=== PATIENT | female | born 1970 | race African-American/Black ===

== ENCOUNTER → 2017-10-04 | Day surgery (SDC) | payer OTHER ==
[~2017-10-04] VITALS: Ht 172.7 cm; Wt 126.4 kg
[~2017-10-04] MED LIST: *morphine SULFATE 4 MG/ML PERIprocedure ONLY ONE; ACETAMINOPHEN 1000 MG/100 ML 100 ML IV ONE; ACETAMINOPHEN 1000 MG/100 ML 100 ML IV SCH; AMOX875; BUPIVACAINE/EPINEPHRINE 0.5% PF 30 ML VIAL ONE; CHLORHEXIDINE GLUCONATE 2 % 1 PACK (2 CLOTHS) TOPICAL PRN; DEXAMETHASONE SOD PHOS 4 MG/ML VIAL IV ONE; DO NOT ADM ANY ANTICOAGULANT DRUGS PRN; ESMOLOL HCL 100 MG/10 ML VIAL IV ONE; GLYCOPYRROLATE 1 MG/5 ML SYRINGE IV PUSH ONE; INSULIN HUMAN REGULAR 1,000 UNITS/10 ML VIAL SQ PRN; KETOROLAC TROMETHAMINE 30 MG/ML (IVP) VIAL IV PUSH ONE; LACTATED RINGER'S 1000 ML IV PRN; LIDOCAINE HCL 1% PF 5 ML SYRINGE OTHER ONE; METOPROLOL TARTRATE 25 MG TAB PO PRN; MORPHINE SULFATE 4 MG/ML INJ IV PUSH PRN; NEOSTIGMINE 5 MG/5 ML SYRINGE IV PUSH ONE; ONDANSETRON HCL 4 MG/2 ML VIAL IV ONE; ONDANSETRON HCL 4 MG/2 ML VIAL IV PUSH PRN; POVIDONE IODINE 5% (ANTISEPSIS KIT) 4 APPLICATIONS EACH NARE PRN; PROM25SU8; PROPOFOL 200 MG/20 ML AMP IV ONE; ROCURONIUM INJ 50 MG/5 ML SYRINGE IV PUSH ONE; SODIUM CHLORID 0.9% 500 ML IV PRN; SODIUM CHLORIDE 0.9% FLUSH 10 ML FLUSH IV FLUSH PRN; SODIUM CHLORIDE 0.9% FLUSH 10 ML FLUSH IV FLUSH SCH; TAMO20TA6 PO; TRAM50 PO; [UNRECOGNIZED DRUG - REMARK]; ceFAZolin 2 GM PREMIX 50 ML IV SCH; metroNIDAZOLE 500 MG INJ 100 ML IV SCH; oxyCODONE/ACETAMINOPHEN 5 MG/325 MG TAB PO PRN
--- NOTE | 2017-10-04 10:35 | PD.OP ---
cc: Tate Kelley MD Operative Report Date of Surgery: October 04, 2017 Preoperative Diagnosis: (1) Gallstones Postoperative Diagnosis: (1) Hydrops of gallbladder (2) Gallstones Procedure: Laparoscopic cholecystectomy Anesthesia: General Surgeon: Tate Kelley Md Physician Dermatologist(s): Vee OSEI Operation and Findings: Complications: None apparent EBL: 20cc Operative findings: Significantly enlarged gallbladder with stone impacted at entrance of cystic duct causing hydrops. Gallbladder inadvertently entered with drainage of clear bile. No stones spilled. Procedure in detail: The patient was taken to the operating room and placed in the supine position. General endotracheal anesthesia was induced. The abdomen was prepped and draped in usual sterile fashion and a surgical timeout was performed to verify correct patient procedure and site. Appropriate perioperative antibiotics were administered. Local anesthetic was injected in the skin and subcutaneous tissue superior to the umbilicus and a 5 mm incision performed. The abdomen was entered using the Optiview 5 mm trocar with direct laparoscopic visualization. The abdomen was then insufflated to 15 mmHg with CO2 gas which the patient tolerated well. Next a 12 mm port was placed in the epigastrium and two 5 mm ports in the right upper quadrant and right lateral abdomen. The patient was placed in reverse Trendelenburg position and turned slightly to the left. Attention was turned to the right upper quadrant and the dome of the gallbladder was grasped and retracted cephalad. The gallbladder was extremely elongated and enlarged. There were a couple of curves to the body of the gallbladder which are from one another to delineate the anatomy. The gallbladder wall was inadvertently entered with drainage of clear bile consistent with hydrops. No stones spilled. The infundibulum was retracted laterally to expose Calot's triangle. Blunt dissection and judicious use of electrocautery was used to expose the cystic duct and the cystic artery directly entering the gallbladder. Two clips were placed proximally on each of these structures and one distally and they were transected. The gallbladder was then removed from the liver bed using electrocautery. Hemostasis was achieved. The gallbladder was then removed from the abdomen using an Endo Catch bag. The right upper quadrant was copiously irrigated. The clips were in place on the cystic duct and cystic artery stumps with no bleeding or bile leakage. The fascia at the 12 mm port site was closed with 0 Vicryl suture using the fascial closure device. At this point, the abdomen was allowed to desufflate and trochars were removed.. Skin was closed with subcuticular 4-0 Monocryl as well as Dermabond. The patient tolerated the procedure well and was extubated and taken to PACU in stable condition. All sponge and instrument counts were correct. Tate Kelley MD October 04, 2017 10:35
[2017-10-04 12:11] VITALS: BP 117/69; PULSE 57; RESP 18; TEMP 97.2; O2SAT 100
== END | disposition home or self-care (01) ==
LOC: HSDC 08:00
PROVIDERS: ATTEND Surgery
DX: K82.1 Hydrops of gallbladder (principal); K80.10 Calculus of gallbladder with chronic cholecystitis without obstruction; Z01.818 Encounter for other preprocedural examination
CPT/HCPCS: 00790; 47562; 88304; J0131; J0690; J1100; J1885; J2270; J2405; J2710; J3010; J7120